=== PATIENT | female | born 1965 ===

== ENCOUNTER → 2018-09-08 | Outpatient (CLI) | payer OTHER ==
[~2018-09-08] VITALS: Ht 175.3 cm; Wt 96.2 kg
[~2018-09-08] MED LIST: ALLEGRA ALLERG180 MG PO; ESTRADIOL 1 MG T1 M1 PO; FLONASE 0.05%50 MCG NASAL; NEURONTIN 300300 M1 PO; PRILOSEC 20 MG20 MG PO; TRAMADOL 50 MG50 MG PO
--- NOTE | ~2018-09-08 | HPC ---
[facility] [address] [address] PAIN MANAGEMENT CONSULTATION Name: RAMY MCGEE Room #: REG FLORENCIA M..#: [id number] Admission: 09/08/18 ������������������ Attend Phys: Maurice Hedrick MD Discharge: ������������������ Date of : 61 Report #: [id number] THIS REPORT FOR: //name// CC: Alena Garcia MD [facility] physician/PCP David Marvin MD Physician staff Maurice Hedrick DATE OF SERVICE: 09/08/2018 Followup visit for bilateral lumbar radiculopathy post-decompressive laminectomy and diskectomy at L4-L5. I am seeing the patient again in followup for epidural steroid injection. She had an injection performed on 04/09/2018 for L5-S1 radiculopathy. She also has some pain that radiates into the groin bilaterally. Given her excellent response, which was about 90 days of excellent pain relief and recurrence just over the course of last month or so, a repeat epidural injection I think is appropriate and reasonable. She describes her pain today as a 7/10. Pain is worse with prolonged sitting, driving, and walking. She describes it as a burning, shooting, cramping, aching sensation. MEDICATIONS: Omeprazole, fluticasone, fexofenadine, estradiol, tramadol and gabapentin. I will renew her medication as she requests, but at this time, she has adequate medication in the opioid class. She may benefit from another prescription of gabapentin and this was provided for her today by phone. PHYSICAL EXAMINATION: Blood pressure is 118/74, heart rate 70, respirations 14, BMI is 31.3. She moves from sitting to standing position, walks without antalgic features. Straight leg raising is positive bilaterally in the L5-S1 distribution. Sensation is intact. Deep tendon reflexes are 2+ knees and diminished at the ankles. IMPRESSION: Post-laminectomy syndrome with radiculopathy, L5-S1. RECOMMENDATIONS: Repeat epidural injection L5-S1 under fluoroscopic guidance. PROCEDURE: She was taken to fluoroscopic suite, placed prone. Skin prepped with ChloraPrep. Skin anesthetized over the L5-S1 interspace. A 20-gauge Tuohy epidural is advanced to the epidural space just to the left of midline. It should be noted that the ligamentum flavum was softly engaged. The loss of resistance was quite prominent. 1 mL of Omnipaque was injected and spread of [facility] [address] [place] [address] PAIN MANAGEMENT CONSULTATION Name: RAMY MCGEE Room #: REG FLORENCIA Lala#: [id number] Admission: 09/08/18 ������������������ Attend Phys: Maurice Hedrick MD Discharge: ������������������ Date of : 61 Report #: [id number] dye was seen within what appeared to be the epidural space. On the AP views, I was just was not comfortable with the spread of the dye, considered that possibly may be posterior to the epidural space as it is sometimes difficult to see the spread at L5-S1 on the lateral views. I then anesthetized the skin to the right of midline and repeated the injection advancing the needle through ligamentum flavum at L5-S1 on that side. 1 mL of Omnipaque was injected again. Spread of dye was seen what appeared to be in the epidural space. It was followed by 3 mL of 0.5% lidocaine mixed with 80 mg of triamcinolone. She tolerated the procedure well and pain was reduced by over 70% in recovery room. Followup visit is planned as needed. She does have a trip planned to [place] with her son in the summer and may consider an epidural injection before that trip. I think that is appropriate use of the epidural injection if it continues to provide the significant symptomatic relief of her radiculopathy. ��������������������������������������������� ���������������������������������������� By: ��������������������������������������������� [id number] Maurice Hedrick MD /nt
[2018-09-08 12:53] VITALS: BP 118/74
--- NOTE | 2018-09-08 13:29 | NUR ---
Pain Clinic Assessment: 1. History of Osteoarthritis: History of Rheumatoid Arthritis: 2. Height: 5 ft. 9 in. 175.3 cm. Weight: 212.0 lb. oz. 96.163 kg. Patient's BMI: 31.3 3. Vital Signs: BP: 118/74 Pulse: 70 Resp: 16 Temp: 02 Sat: 100 ECG Mon: 4. Pain Intensity: 7 5. Fall Risk: Dizziness: N Needs help standing or walking: N Fallen in the last 3 months: N Fall risk comments: 6. Patient on Blood Thinner: None 7. History of Hypertension: N 8. Opioid Therapy greater than 6 weeks: N Opiate Contract Signed: 9. Risk Assessment Tool Provided: 10. Functional Assessment Tool: 11. Recreational Drug Use: Never Drug Type: Tobacco Use: Never Smoker Tobacco Type: Amount or Packs/day: How Many Years: Alcohol Use: No Frequency: Quant:
== END | disposition home or self-care (01) ==
LOC: PAIN 07:10
DX: M54.16 Radiculopathy, lumbar region (principal); G89.29 Other chronic pain; M96.1 Postlaminectomy syndrome, not elsewhere classified; Z98.890 Other specified postprocedural states; Z79.899 Other long term (current) drug therapy; Z90.710 Acquired absence of both cervix and uterus; Z88.2 Allergy status to sulfonamides

== ENCOUNTER → 2018-12-04 | Outpatient (CLI) | payer OTHER ==
[~2018-12-04] VITALS: Ht 175.3 cm; Wt 99.8 kg
[~2018-12-04] MED LIST changes: +VALIUM5 MG PO
[2018-12-04 14:35] VITALS: BP 112/82
--- NOTE | 2018-12-04 14:45 | NUR ---
Pain Clinic Assessment: 1. History of Osteoarthritis: DENIES History of Rheumatoid Arthritis: DENIES 2. Height: 5 ft. 9 in. 175.3 cm. Weight: 220.0 lb. oz. 99.792 kg. Patient's BMI: 32.5 3. Vital Signs: BP: 112/82 Pulse: 72 Resp: 16 Temp: 02 Sat: 98 ECG Mon: 4. Pain Intensity: 4-5 5. Fall Risk: Dizziness: N Needs help standing or walking: N Fallen in the last 3 months: N Fall risk comments: 6. Patient on Blood Thinner: None 7. History of Hypertension: N 8. Opioid Therapy greater than 6 weeks: N Opiate Contract Signed: 9. Risk Assessment Tool Provided: 10. Functional Assessment Tool: 11. Recreational Drug Use: Never Drug Type: Tobacco Use: Never Smoker Tobacco Type: Amount or Packs/day: How Many Years: Alcohol Use: No Frequency: Quant:
--- NOTE | 2018-12-08 18:13 | HPC ---
[facility] [address] [place] [address] PAIN MANAGEMENT CONSULTATION Name: RAMY MCGEE Room #: REG FLORENCIA Lori.#: [id number] Admission: 12/04/18 ������������������ Attend Phys: Maurice Hedrick MD Discharge: ������������������ Date of : 61 Report #: [id number] THIS REPORT FOR: //name// CC: [facility] physician/PCP Physician staff Maurice Hedrick DATE OF SERVICE: 12/04/2018 Followup visit for post-laminectomy syndrome with radiculopathy. The patient returns to pain clinic today and I was able to review her MRI. It actually looks pretty good. Her central canal is open, it does not appear that she has much significant neural foraminal stenosis either. She and I reviewed the x-rays. They certainly show that there has been improvement since her surgery, but nonetheless she continues to complain of pain in the level of 4-5/10, consistent with radiculopathy. She may have some ongoing nerve root irritation and the injection does seem to help the pain that radiates through the L5-S1 distribution bilaterally and she also has some discomfort in the left perineum. We reviewed her last injection, which was not as helpful as the one that she had previously. I did replace the needle. I had injected her on the right versus the left and it may well be that scar tissue, as a result of surgery, changes the distribution of medication to the epidural space. We did discuss the possibility of a transforaminal epidural injection in the future if she is not responding favorably to continued epidural injections. Midline approach certainly can be interfered by scar tissue when laminectomy has been performed. PHYSICAL EXAMINATION: GENERAL: She is pleasant female. VITAL SIGNS: Blood pressure 112/82, heart rate 72, respirations 16. MUSCULOSKELETAL: She moves easily from sitting to standing position, ambulates with antalgic features. She has some discomfort across her low back. Pain also is described as burning, shooting and aching into the posterior thigh and calf as well as left perineum. IMPRESSION: Lumbar radiculopathy, post-laminectomy syndrome. PLAN: We will go forward with an epidural injection. I plan to continue injecting her L5-S1. This is very slight anterolisthesis of L5 on S1 at that level. PROCEDURE: She was taken to fluoroscopic suite, placed prone, skin prepped with ChloraPrep. Skin anesthetized over the L5-S1 interspace. A 20-gauge [address] [address] PAIN MANAGEMENT CONSULTATION Name: RAMY MCGEE Room #: REG FLORENCIA Lala#: [id number] Admission: 12/04/18 ������������������ Attend Phys: Maurice Hedrick MD Discharge: ������������������ Date of : 61 Report #: [id number] epidural needle was carefully advanced into the epidural space to left of midline. There was no blood or CSF aspirated. A 1 mL of Omnipaque was injected and spread of dye was seen within the epidural space. It was then followed by 3 mL of 0.5% lidocaine mixed with 80 mg of triamcinolone. She tolerated the procedure well, was observed for 45 minutes and discharged. Followup visit plan as needed in the future. 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 She will be flying [place] and I provided with 5 mg diazepam tablets, #5, to use for muscle tension that can develop in the low back during flight. I have also renewed her tramadol and gabapentin for her. She will use 1 tablet a day of each at the maximum. She will carefully safeguard all medications. ��������������������������������������������� <ELECTRONICALLY SIGNED> ���������������������������������������� By: Maurice Hedrick MD ��������������������������������������������� 12/08/18 [id number] [id number] Maurice Hedrick MD /nt
== END | disposition home or self-care (01) ==
LOC: PAIN 06:56
DX: M54.16 Radiculopathy, lumbar region (principal); M96.1 Postlaminectomy syndrome, not elsewhere classified; G89.29 Other chronic pain; Z88.2 Allergy status to sulfonamides; Z79.899 Other long term (current) drug therapy; Z98.890 Other specified postprocedural states